=== PATIENT | female | born 1990 | race African-American/Black ===

== ENCOUNTER 2017-01-28 09:08 | Emergency (ER) | payer MEDICAID ==
[~2017-01-28] VITALS: Ht 162.6 cm; Wt 82.0 kg
[2017-01-28] MEDS ORDERED: KETOROLAC 60MG/2ML VIAL IM ONE (10:45)
[2017-01-28] MEDS ORDERED: CYCLOBENZAPRINE 10MG TABLET PO ONE (10:45)
[2017-01-28 11:24] VITALS: BP 118/77
== END 2017-01-28 11:56 | disposition home or self-care (01) ==
LOC: ER 11:15
DX: R51 Headache (principal); M62.830 Muscle spasm of back; M54.5 Low back pain; V49.49XA Driver injured in collision with other motor vehicles in traffic accident, initial encounter; Y93.89 Activity, other specified; Y92.410 Unspecified street and highway as the place of occurrence of the external cause
CPT/HCPCS: 96372; 99283; J1885; Z7610